=== PATIENT | male | born 1935 | race Caucasian/White ===

== ENCOUNTER → 2017-02-08 | Outpatient (CLI) | payer MEDICARE, OTHER ==
[~2017-02-08] MED LIST: ACID CONTROL150 MG PO; ADVAIR 250-501 EACH INH; AMARYL 2MG TABLE2 MG PO; AMARYL4 MG PO; CEFUROXIME500 MG PO; CLARITIN10 M2 PO; FENOFIBRATE200 MG PO; FLOVENT DISKUS50 MCG INH; FOSINOPRIL SODI40 MG PO; IPRAT-ALBUT 0.5-3 ML INH; JANUMET XR 50-1 EACH PO; LANTUS100 UNIT/1 SQ; LOPRESSOR100 MG PO; LOVAZA1 GM PO; MEDROL DOSEPAK 24 MG PO; MELOXICAM7.5 MG PO; NORVASC 5 MG TAB5 MG PO; OMEGA 3 1,0001 EACH PO; PROAIR HFA8.5 GM INH; PROAIR HFA8.5 GM PO; SPIRIVA HANDIH18 MCG INH; VITAMIN D2000 UNIT PO; ZITHROMAX250 MG PO
== END ==
LOC: HEART 5 10:14
DX: J44.9 Chronic obstructive pulmonary disease, unspecified (principal); R06.02 Shortness of breath; R94.2 Abnormal results of pulmonary function studies
CPT/HCPCS: 94060; 94729

== ENCOUNTER 2020-11-05 16:26 | Inpatient (IN) | payer MEDICARE, OTHER ==
[~2020-11-05] VITALS: Ht 170.2 cm; Wt 72.6 kg
[~2020-11-05 16:26] MED LIST changes: -ADVAIR 250-501 EACH INH; +ALBUTEROL2.5 MG/3 M INH; +CEFDINIR300 MG PO; +DALIRESP250 MCG PO; +DIGOXIN125 MCG PO; +DILTIAZEM 24HR120 M1 PO; +ELIQUIS 5 MG TAB5 MG PO; +FLOMAX 0.4 MG0.4 MG PO; -JANUMET XR 50-1 EACH PO; +LOPRESSOR 50 MG50 MG PO; +METOCLOPRAMIDE H5 MG PO; +MUCINEX DM ER1 EAC1 PO; +PREDNISONE 10 M10 MG PO; +ROPINIROLE HCL1 MG PO; +ZANTAC 150 MG150 MG PO; +ZITHROMAX500 MG PO
[2020-11-05 17:13] LABS: HEMOGLOBIN 10.3 gm/dl (14.0-17.5); RED BLOOD COUNT 3.53 M/UL (4.20-5.50)
[2020-11-05 17:30] LABS: BUN/CREATININE RATIO 20 (0-10)
[2020-11-05] MEDS ORDERED: ZITHROMAX500 MG PO (20:40)
[2020-11-05] MEDS ORDERED: PREDNISONE 10 M10 MG PO (20:42)
[2020-11-05 21:37] LABS: HEMOGLOBIN 10.4 gm/dl (14.0-17.5); RED BLOOD COUNT 3.56 M/UL (4.20-5.50); WHITE BLOOD COUNT 10.4 K/UL (4.5-11.0)
[2020-11-05 22:26] LABS: BUN/CREATININE RATIO 21 (0-10)
[2020-11-06 04:47] LABS: BUN/CREATININE RATIO 26 (0-10)
[2020-11-06 04:59] LABS: HEMOGLOBIN 9.5 gm/dl (14.0-17.5); RED BLOOD COUNT 3.41 M/UL (4.20-5.50); WHITE BLOOD COUNT 9.6 K/UL (4.5-11.0)
[2020-11-07 04:29] LABS: RED BLOOD COUNT 3.49 M/UL (4.20-5.50); WHITE BLOOD COUNT 10.7 K/UL (4.5-11.0)
[2020-11-07 04:49] LABS: BUN/CREATININE RATIO 31 (0-10)
[2020-11-08 11:17] LABS: BUN/CREATININE RATIO 28 (0-10)
[2020-11-10 04:54] LABS: HEMOGLOBIN 11.9 gm/dl (14.0-17.5); RED BLOOD COUNT 4.13 M/UL (4.20-5.50); WHITE BLOOD COUNT 9.8 K/UL (4.5-11.0)
[2020-11-10 05:14] LABS: BUN/CREATININE RATIO 31 (0-10)
[2020-11-10] MEDS ORDERED: SPIRIVA RESPIMAT4 GM INH (08:38)
[2020-11-10] MEDS ORDERED: IPRAT-ALBUT 0.5-3 ML NEB (08:38)
[2020-11-10] MEDS ORDERED: MEDROL DOSEPAK 24 MG PO (08:43)
[2020-11-10] MEDS ORDERED: SYMBICORT 16010.2 GM INH (08:43)
[2020-11-10] MEDS ORDERED: LOPRESSOR 25 MG25 MG PO (08:43)
[2020-11-10] MEDS ORDERED: POTASSIUM CHLO10 MEQ PO (08:59)
[2020-11-10] MEDS ORDERED: FUROSEMIDE20 MG PO (08:59)
[2020-11-10] MEDS ORDERED: LIPITOR20 MG PO (09:08)
[2020-11-10] MEDS ORDERED: OMNICEF 300 MG300 MG PO (09:08)
[2020-11-10] MEDS ORDERED: ASPIRIN EC81 MG PO (09:08)
[2021-02-05] MEDS ORDERED: ADVAIR 250-501 EACH INH (09:05)
[2021-02-11] MEDS ORDERED: AMOXICILLIN500 MG PO (13:04)
[2021-03-31] MEDS ORDERED: JANUMET 50-1,01 EACH PO (09:14)
== END 2020-11-10 12:40 | disposition home or self-care (01) | DRG 291 ==
LOC: ER1 16:26 → CDU 18:31 → PROG CARE 18:31 → M/S 18:31 → PROG CARE 11-06 15:30 → M/S 11-09 15:04
PROVIDERS: Emergency Medicine; Internal Medicine; ADMIT Internal Medicine
PROC: B24BZZZ Ultrasonography of Heart with Aorta (ICD-10-PCS; principal; 2020-11-08)
DX: I11.0 Hypertensive heart disease with heart failure (principal); J18.9 Pneumonia, unspecified organism; J96.22 Acute and chronic respiratory failure with hypercapnia; J96.21 Acute and chronic respiratory failure with hypoxia; G93.41 Metabolic encephalopathy; J44.0 Chronic obstructive pulmonary disease with (acute) lower respiratory infection; I48.20 Chronic atrial fibrillation, unspecified; J44.1 Chronic obstructive pulmonary disease with (acute) exacerbation; Z20.828 Contact with and (suspected) exposure to other viral communicable diseases; K21.9 Gastro-esophageal reflux disease without esophagitis; M19.90 Unspecified osteoarthritis, unspecified site; Z87.891 Personal history of nicotine dependence; Z79.4 Long term (current) use of insulin; Z99.81 Dependence on supplemental oxygen; Z79.52 Long term (current) use of systemic steroids; T50.905A Adverse effect of unspecified drugs, medicaments and biological substances, initial encounter; Z91.14 Patient's other noncompliance with medication regimen; F03.90 Unspecified dementia, unspecified severity, without behavioral disturbance, psychotic disturbance, mood disturbance, and anxiety; I50.9 Heart failure, unspecified; H91.90 Unspecified hearing loss, unspecified ear; N40.0 Benign prostatic hyperplasia without lower urinary tract symptoms; Z82.49 Family history of ischemic heart disease and other diseases of the circulatory system; D75.89 Other specified diseases of blood and blood-forming organs; I48.0 Paroxysmal atrial fibrillation; E11.65 Type 2 diabetes mellitus with hyperglycemia; F41.9 Anxiety disorder, unspecified; E87.6 Hypokalemia
CPT/HCPCS: ECHO; 36415; 36600; 70450; 71045; 71046; 80048; 80053; 80069; 80162; 80202; 80307; 81001; 82009; 82140; 82550; 82553; 82803; 82962; 83036; 83605; 83735; 83874; 83880; 84295; 84484; 85025; 85027; 85652; 86140; 87086; 87635; 92610; 93005; 93306; 94640; 94660; 94664; 94760; 96365; 96366; 96367; 96372; 96375; 96376; 97110-GP-CQ; 97162; 97530-GP-CQ; 99285; J1100; J1650; J1940; J2060; J2543; J2920; J3370; J7030; J7070; Q9967

== ENCOUNTER 2021-02-05 09:20 | Inpatient (IN) | payer MEDICARE, OTHER ==
[~2021-02-05] VITALS: Ht 157.5 cm; Wt 75.4 kg
[~2021-02-05 09:20] MED LIST changes: +ADVAIR 250-501 EACH INH; +ASPIRIN EC81 MG PO; +FUROSEMIDE20 MG PO; +IPRAT-ALBUT 0.5-3 ML NEB; +LIPITOR20 MG PO; +LOPRESSOR 25 MG25 MG PO; +OMNICEF 300 MG300 MG PO; +POTASSIUM CHLO10 MEQ PO; +SPIRIVA RESPIMAT4 GM INH; +SYMBICORT 16010.2 GM INH
[2021-02-05 10:13] LABS: HEMOGLOBIN 10.7 gm/dl (14.0-17.5); RED BLOOD COUNT 3.74 M/UL (4.20-5.50); WHITE BLOOD COUNT 10.3 K/UL (4.5-11.0)
[2021-02-05] MEDS ORDERED: HYDROCODON-ACE1 EAC2 PO (10:32)
[2021-02-05 10:39] LABS: BUN/CREATININE RATIO 18 (0-10)
[2021-02-05] MEDS ORDERED: FLOMAX 0.4 MG0.4 MG PO (16:34)
[2021-02-06 04:41] LABS: HEMOGLOBIN 9.1 gm/dl (14.0-17.5)
[2021-02-06 04:43] LABS: RED BLOOD COUNT 3.28 M/UL (4.20-5.50); WHITE BLOOD COUNT 7.3 K/UL (4.5-11.0)
[2021-02-06 04:57] LABS: BUN/CREATININE RATIO 17 (0-10)
--- NOTE | 2021-02-06 12:18 | NUR ---
PATIENT BLOOD SUGAR 41 AT 12NOON CHECK. D5 IV GIVEN FOR LOW BLOOD SUGAR. NEW VALUE 123 AT 1215. WILL CONTINUE TO MONITOR
[2021-02-06 14:10] LABS: ACINETOBACTER BAUMANNII Not Detected (Negative); CANDIDA ALBICANS Not Detected (Negative); CANDIDA KRUSEI Not Detected (Negative); CANDIDA TROPICALIS Not Detected (Negative); ESCHERICHIA COLI Not Detected (Negative); HAEMOPHILUS INFLUENZAE Not Detected (Negative); KLEBSIELLA OXYTOCA Not Detected (Negative); KLEBSIELLA PNEUMONIAE Not Detected (Negative); KPC-CARBAPENEM-RESISTANCE GENE Not Detected (Negative); PROTEUS Not Detected (Negative); PSEUDOMONAS AERUGINOSA Not Detected (Negative); SERRATIA MARCESANS Not Detected (Negative); STAPHYLOCOCCUS AUREUS Not Detected (Negative); STREP AGALACTIAE (GROUP B) Not Detected (Negative); STREP PYOGENES (GROUP A) Not Detected (Negative); STREPTOCOCCUS Not Detected (Negative); vanA/B (VANCOMYCIN RESIST GENE Not Detected (Negative)
[2021-02-06 15:38] LABS: ENTEROCOCCUS DETECTED (Negative); STAPHYLOCOCCUS DETECTED (Negative); mecA (METHICILLIN RESIST GENE DETECTED (Negative)
--- NOTE | 2021-02-06 16:43 | NUR ---
PATIENT BLOOD SUGAR AT 23. I AMP D50 GIVEN, NOW BLOOD SUGAR AT 157. PATIENT STARTED ON D5 1/2 NS AT 50. WILL CONTINUE TO MONITOR
[2021-02-07 04:25] LABS: HEMOGLOBIN 9.6 gm/dl (14.0-17.5); RED BLOOD COUNT 3.43 M/UL (4.20-5.50); WHITE BLOOD COUNT 7.7 K/UL (4.5-11.0)
[2021-02-07 04:51] LABS: BUN/CREATININE RATIO 16 (0-10)
[2021-02-08 05:27] LABS: HEMOGLOBIN 9.6 gm/dl (14.0-17.5); RED BLOOD COUNT 3.36 M/UL (4.20-5.50); WHITE BLOOD COUNT 9.6 K/UL (4.5-11.0)
[2021-02-08 05:50] LABS: BUN/CREATININE RATIO 20 (0-10)
[2021-02-08] MEDS ORDERED: LEVOFLOXACIN500 MG PO (10:09)
[2021-02-08] MEDS ORDERED: MEDROL DOSEPAK 24 MG PO (10:11)
[2021-02-11] MEDS ORDERED: AMOXICILLIN500 MG PO (13:04)
[2021-03-31] MEDS ORDERED: JANUMET 50-1,01 EACH PO (09:14)
== END 2021-02-08 13:55 | disposition home or self-care (01) | DRG 193 ==
LOC: ER1 09:20 → CDU 11:26 → PROG CARE 11:26
PROVIDERS: Physician Assistant; Physician Assistant Medical; ADMIT Internal Medicine
DX: J18.9 Pneumonia, unspecified organism (principal); J96.21 Acute and chronic respiratory failure with hypoxia; J96.22 Acute and chronic respiratory failure with hypercapnia; J44.1 Chronic obstructive pulmonary disease with (acute) exacerbation; E11.649 Type 2 diabetes mellitus with hypoglycemia without coma; I10 Essential (primary) hypertension; E78.5 Hyperlipidemia, unspecified; I48.0 Paroxysmal atrial fibrillation; Z79.01 Long term (current) use of anticoagulants; N40.0 Benign prostatic hyperplasia without lower urinary tract symptoms; Z79.82 Long term (current) use of aspirin; Z79.899 Other long term (current) drug therapy; Z87.891 Personal history of nicotine dependence; Z82.49 Family history of ischemic heart disease and other diseases of the circulatory system; Z79.4 Long term (current) use of insulin
CPT/HCPCS: ECHO; 36415; 36600; 71045; 71046; 80048; 80053; 80202; 82009; 82803; 82962; 83036; 83735; 85025; 85027; 87040; 87077; 87150; 87186; 93005; 93306; 94640; 94660; 94760; 96365; 96367; 96372; 96375; 96376; 97162; 97530-GP-CQ; 99285; J0456; J0696; J2543; J2920; J3370; J7030; J7070; U0002

== ENCOUNTER 2021-02-25 10:25 | Emergency (ER) | payer MEDICARE, OTHER ==
[~2021-02-25 10:25] MED LIST changes: +AMOXICILLIN500 MG PO; +HYDROCODON-ACE1 EAC2 PO; +LEVOFLOXACIN500 MG PO
[2021-03-31] MEDS ORDERED: JANUMET 50-1,01 EACH PO (09:14)
== END 2021-02-25 13:57 | disposition home or self-care (01) ==
LOC: ER1 10:25
DX: S46.011A Strain of muscle(s) and tendon(s) of the rotator cuff of right shoulder, initial encounter (principal); I10 Essential (primary) hypertension; J44.9 Chronic obstructive pulmonary disease, unspecified; W22.8XXA Striking against or struck by other objects, initial encounter
CPT/HCPCS: 73030; 73200; 96374; 96375; 99284; J2270; J2405

== ENCOUNTER 2021-03-04 15:05 | Inpatient (IN) | payer MEDICARE, OTHER ==
[~2021-03-04] VITALS: Ht 172.7 cm; Wt 80.3 kg
[2021-03-04 16:56] LABS: HEMOGLOBIN 8.9 gm/dl (14.0-17.5); RED BLOOD COUNT 3.21 M/UL (4.20-5.50); WHITE BLOOD COUNT 14.6 K/UL (4.5-11.0)
[2021-03-04 17:01] LABS: BUN/CREATININE RATIO 20 (0-10)
[2021-03-05 02:56] LABS: HEMOGLOBIN 8.6 gm/dl (14.0-17.5); RED BLOOD COUNT 3.14 M/UL (4.20-5.50)
[2021-03-05 03:01] LABS: WHITE BLOOD COUNT 10.7 K/UL (4.5-11.0)
[2021-03-05 03:15] LABS: BUN/CREATININE RATIO 24 (0-10)
[2021-03-05] MEDS ORDERED: METOPROLOL TART25 MG PO (11:51)
[2021-03-05] MEDS ORDERED: PREDNISONE10 MG PO (11:53)
[2021-03-05] MEDS ORDERED: IPRAT-ALBUT 0.5-3 ML INH (11:53)
[2021-03-05 17:28] LABS: BORDETELLA PARAPERTUSSIS Not Detected (Not Detectd); BORDETELLA PERTUSSIS Not Detected (Not Detectd); CHLAMYDIA PNEUMONIAE Not Detected (Not Detectd); CORONAVIRUS HKU1 Not Detected (Not Detectd); CORONAVIRUS NL63 Not Detected (Not Detectd); CORONAVIRUS OC43 Not Detected (Not Detectd); CORONOAVIRUS 229E Not Detected (Not Detectd); HUMAN METAPNEUMOVIRUS Not Detected (Not Detectd); HUMAN RHINOVIRUS/ENTEROVIRUS Not Detected (Not Detectd); INFLUENZA A Not Detected (Not Detectd); INFLUENZA B Not Detected (Not Detectd); MYCOPLASMA PNEUMONIAE Not Detected (Not Detectd); PARAINFLUENZA VIRUS 1 Not Detected (Not Detectd); PARAINFLUENZA VIRUS 2 Not Detected (Not Detectd); PARAINFLUENZA VIRUS 3 Not Detected (Not Detectd); PARAINFLUENZA VIRUS 4 Not Detected (Not Detectd); RESPIRATORY SYNCYTIAL VIRUS Not Detected (Not Detectd)
[2021-03-05 19:36] LABS: SARS-CoV-2 NOT DETECTED (Not Detectd)
[2021-03-05] MEDS ORDERED: ZITHROMAX500 MG PO (20:14)
[2021-03-06 03:37] LABS: HEMOGLOBIN 8.5 gm/dl (14.0-17.5); RED BLOOD COUNT 3.11 M/UL (4.20-5.50); WHITE BLOOD COUNT 10.1 K/UL (4.5-11.0)
[2021-03-06 04:09] LABS: BUN/CREATININE RATIO 27 (0-10)
[2021-03-07 02:53] LABS: RED BLOOD COUNT 2.93 M/UL (4.20-5.50); WHITE BLOOD COUNT 9.5 K/UL (4.5-11.0)
[2021-03-07 03:18] LABS: BUN/CREATININE RATIO 25 (0-10)
[2021-03-08 04:06] LABS: BUN/CREATININE RATIO 21 (0-10)
[2021-03-08] MEDS ORDERED: DIGOXIN125 MCG PO (10:20)
[2021-03-08] MEDS ORDERED: METOPROLOL TART25 MG PO (10:20)
[2021-03-08] MEDS ORDERED: AUGMENTIN 875-1 EACH PO (10:20)
[2021-03-08 13:09] LABS: ORGANISM ID Not indicated. (.); SPECIMEN SOURCE Urine (.); STREPTOCOCCUS PNEUMONIAE AG Negative (Negative)
--- NOTE | 2021-03-08 13:09 | NUR ---
TRANSPORT NOTIFIED THAT FAMILIES VEHICLE WOULDN'T START AND BROUGHT THE PATIENT BACK INSIDE TO THE LOBBY. SUPPLEMENTAL TAKEN BY RN AND ASSESSED THAT THE PATIENT WAS OKAY. O2 SAT WAS 93% ON 3LNC. PATIENT SWITCHED TO THE HOSPITAL TANK WHILE WAITING IN THE LOBBY FOR HIS TRANSPORTATION.
[2021-03-31] MEDS ORDERED: JANUMET 50-1,01 EACH PO (09:14)
== END 2021-03-08 12:39 | disposition home health service (06) | DRG 177 ==
LOC: ER1 15:05 → CDU 18:16 → PROG CARE 18:16
PROVIDERS: Preventive Medicine Occupational Medicine; ADMIT Internal Medicine Infectious Disease
DX: J69.0 Pneumonitis due to inhalation of food and vomit (principal); J96.21 Acute and chronic respiratory failure with hypoxia; J96.22 Acute and chronic respiratory failure with hypercapnia; G92 Toxic encephalopathy; E87.2 Acidosis; J44.1 Chronic obstructive pulmonary disease with (acute) exacerbation; I48.0 Paroxysmal atrial fibrillation; R41.82 Altered mental status, unspecified; E11.9 Type 2 diabetes mellitus without complications; N40.0 Benign prostatic hyperplasia without lower urinary tract symptoms; I10 Essential (primary) hypertension; E78.5 Hyperlipidemia, unspecified; T40.605A Adverse effect of unspecified narcotics, initial encounter; D50.9 Iron deficiency anemia, unspecified; R13.10 Dysphagia, unspecified; Z79.01 Long term (current) use of anticoagulants; Z87.891 Personal history of nicotine dependence; Z82.49 Family history of ischemic heart disease and other diseases of the circulatory system; Y92.89 Other specified places as the place of occurrence of the external cause; Z20.822 Contact with and (suspected) exposure to COVID-19
CPT/HCPCS: 36415; 36600; 71045; 74230; 80048; 80053; 82550; 82553; 82607; 82728; 82746; 82803; 82962; 83540; 83550; 83605; 83690; 83874; 83880; 84443; 84484; 85025; 85652; 86140; 86738; 87040; 87278; 87633; 87899; 92610; 92611-GN; 93005; 94640; 94660; 94664; 94760; 96374; 96375; 97161; 97166; 99284; J1160; J1170; J1756; J1940; J2543; J2930; J3486; J7030; U0002

== ENCOUNTER 2021-03-29 17:20 | Emergency (ER) | payer MEDICARE, OTHER ==
[~2021-03-29 17:20] MED LIST changes: +AUGMENTIN 875-1 EACH PO; +METOPROLOL TART25 MG PO; +PREDNISONE10 MG PO
[2021-03-31] MEDS ORDERED: JANUMET 50-1,01 EACH PO (09:14)
== END 2021-03-29 19:39 | disposition home or self-care (01) ==
LOC: ER1 17:20
DX: S46.001A Unspecified injury of muscle(s) and tendon(s) of the rotator cuff of right shoulder, initial encounter (principal); J44.9 Chronic obstructive pulmonary disease, unspecified; E11.9 Type 2 diabetes mellitus without complications; I50.9 Heart failure, unspecified; X50.0XXA Overexertion from strenuous movement or load, initial encounter
CPT/HCPCS: 73030; 96374; 96375; 99283; J2270; J2405

== ENCOUNTER 2021-03-31 10:10 | Inpatient (IN) | payer MEDICARE, OTHER ==
[~2021-03-31] VITALS: Ht 172.7 cm; Wt 80.7 kg
[~2021-03-31 10:10] MED LIST changes: +JANUMET 50-1,01 EACH PO
[2021-03-31] MEDS ORDERED: LANTUS100 UNIT/1 SC (10:34)
[2021-03-31 11:29] LABS: HEMOGLOBIN 8.7 gm/dl (14.0-17.5); RED BLOOD COUNT 3.09 M/UL (4.20-5.50); WHITE BLOOD COUNT 9.1 K/UL (4.5-11.0)
[2021-03-31] MEDS ORDERED: WIXELA 250-501 EACH INH (11:55)
[2021-03-31 12:21] LABS: BUN/CREATININE RATIO 24 (0-10)
[2021-03-31] MEDS ORDERED: ELIQUIS5 MG PO (16:39)
[2021-03-31] MEDS ORDERED: METOPROLOL TAR100 MG PO (18:53)
[2021-03-31] MEDS ORDERED: PEPCID20 MG PO (19:08)
[2021-03-31] MEDS ORDERED: REFRESH TEARS15 ML EYEBOTH (19:09)
[2021-04-01 02:40] LABS: HEMOGLOBIN 8.5 gm/dl (14.0-17.5); RED BLOOD COUNT 3.03 M/UL (4.20-5.50); WHITE BLOOD COUNT 8.4 K/UL (4.5-11.0)
[2021-04-01 03:12] LABS: BUN/CREATININE RATIO 25 (0-10)
[2021-04-03 03:14] LABS: HEMOGLOBIN 8.8 gm/dl (14.0-17.5); RED BLOOD COUNT 3.22 M/UL (4.20-5.50); WHITE BLOOD COUNT 9.1 K/UL (4.5-11.0)
[2021-04-03 03:34] LABS: BUN/CREATININE RATIO 19 (0-10)
--- NOTE | 2021-04-04 03:14 | NUR ---
PATIENT HAS BEEN NONCOMPLIANT WITH BIPAP AND WILL ONLY WEAR NASAL CANNULA. HIS SATS HAVE REMAINED GOOD THROUGHOUT THE SHIFT.
[2021-04-05 03:10] LABS: HEMOGLOBIN 8.8 gm/dl (14.0-17.5); RED BLOOD COUNT 3.17 M/UL (4.20-5.50)
[2021-04-05 03:39] LABS: BUN/CREATININE RATIO 22 (0-10)
[2021-04-06] MEDS ORDERED: LANTUS INS100 UTS/M1 SC (17:36)
[2021-04-06] MEDS ORDERED: PREDNISONE 20 M20 MG PO (17:36)
[2021-04-06] MEDS ORDERED: HYDROCODON-ACE1 EAC4 PO (17:36)
[2021-04-06] MEDS ORDERED: PROTONIX40 MG PO (17:54)
== END 2021-04-06 18:18 | disposition home health service (06) | DRG 637 ==
LOC: ER1 10:10 → CDU 13:10 → PROG CARE 13:10
PROVIDERS: Emergency Medicine; Internal Medicine; Internal Medicine Pulmonary Disease; ADMIT Internal Medicine
PROC: 0R9J3ZZ Drainage of Right Shoulder Joint, Percutaneous Approach (ICD-10-PCS; principal; 2021-04-03)
DX: E11.649 Type 2 diabetes mellitus with hypoglycemia without coma (principal); J96.02 Acute respiratory failure with hypercapnia; G93.41 Metabolic encephalopathy; I47.1 Supraventricular tachycardia; J44.9 Chronic obstructive pulmonary disease, unspecified; N40.0 Benign prostatic hyperplasia without lower urinary tract symptoms; I48.91 Unspecified atrial fibrillation; E78.5 Hyperlipidemia, unspecified; I10 Essential (primary) hypertension; Z20.822 Contact with and (suspected) exposure to COVID-19; T68.XXXA Hypothermia, initial encounter; S46.001A Unspecified injury of muscle(s) and tendon(s) of the rotator cuff of right shoulder, initial encounter; N30.90 Cystitis, unspecified without hematuria; Z79.4 Long term (current) use of insulin; Z79.01 Long term (current) use of anticoagulants; Z87.891 Personal history of nicotine dependence; Z82.49 Family history of ischemic heart disease and other diseases of the circulatory system; Z91.19 Patient's noncompliance with other medical treatment and regimen
CPT/HCPCS: 36415; 36600; 70450; 71045; 73030; 80048; 80053; 80162; 82550; 82553; 82803; 82962; 83605; 83690; 83735; 83880; 84439; 84443; 84484; 85025; 85610; 85730; 87040; 93005; 94640; 94660; 94664; 94760; 96374; 96375; 97161; 99283; 99285; J1610; J1630; J2270; J2405; J7030; J7070; U0002

== ENCOUNTER 2021-04-26 23:52 | Emergency (ER) | payer MEDICARE, OTHER ==
[~2021-04-26 23:52] MED LIST changes: +ELIQUIS5 MG PO; +HYDROCODON-ACE1 EAC4 PO; +LANTUS INS100 UTS/M1 SC; +LANTUS100 UNIT/1 SC; +METOPROLOL TAR100 MG PO; +PEPCID20 MG PO; +PREDNISONE 20 M20 MG PO; +PROTONIX40 MG PO; +REFRESH TEARS15 ML EYEBOTH; +WIXELA 250-501 EACH INH
[2021-04-27 00:34] LABS: HEMOGLOBIN 11.2 gm/dl (14.0-17.5); RED BLOOD COUNT 4.08 M/UL (4.20-5.50); WHITE BLOOD COUNT 11.4 K/UL (4.5-11.0)
[2021-04-27 00:53] LABS: BUN/CREATININE RATIO 17 (0-10)
== END 2021-04-27 03:01 | disposition home or self-care (01) ==
LOC: ER1 23:52
PROVIDERS: Emergency Medicine
DX: E11.649 Type 2 diabetes mellitus with hypoglycemia without coma (principal); J44.9 Chronic obstructive pulmonary disease, unspecified; I10 Essential (primary) hypertension; Z87.891 Personal history of nicotine dependence
CPT/HCPCS: 36600; 71045; 80053; 81001; 82803; 82962; 83690; 85025; 93005; 99285